=== PATIENT | female | born 1980 | race Caucasian/White ===

== ENCOUNTER 2017-09-06 09:18 | Emergency (ER) | payer MEDICAID ==
[~2017-09-06] VITALS: Ht 157.5 cm; Wt 72.0 kg
[~2017-09-06 09:18] MED LIST: NO HOME MEDS
[2017-09-06 09:32] VITALS: BP 125/59
== END 2017-09-06 11:07 | disposition left against medical advice (07) ==
LOC: ER 09:18
DX: K08.89 Other specified disorders of teeth and supporting structures (principal); Z53.21 Procedure and treatment not carried out due to patient leaving prior to being seen by health care provider

== ENCOUNTER 2017-10-05 11:53 | Emergency (ER) | payer MEDICAID ==
[~2017-10-05] VITALS: Ht 171703.7 cm; Wt 68.1 kg
[2017-10-05 12:29] LABS: BASOPHILS % (AUTO) 0.3 % (0-1); EOSINOPHILS # (AUTO) 0.1 X10'3 (0-0.9); HEMATOCRIT 38.4 % (35.0-45.0); HEMOGLOBIN 12.7 g/dl (12.0-16.0); LYMPHOCYTES % (AUTO) 29.8 % (21-51); MEAN CORPUSCULAR HEMOGLOBIN 29.2 PG (27.0-31.0); MEAN CORPUSCULAR HGB CONC 33.1 % (33.0-36.5); MEAN CORPUSCULAR VOLUME 88.2 FL (78-98); MEAN PLATELET VOLUME 8.2 FL (7.4-10.4); MONOCYTES # (AUTO) 0.5 X10'3 (0-0.9); MONOCYTES % (AUTO) 7.2 % (2-12); NEUTROPHILS # (AUTO) 4.2 X10'3 (1.8-7.7); NEUTROPHILS % (AUTO) 60.7 % (42-75); PLATELET COUNT 309 X10'3 (140-440); RED BLOOD COUNT 4.35 X10'6 (4.20-5.60); WHITE BLOOD COUNT 6.9 X10'3 (4.5-11.0)
[2017-10-05 12:57] LABS: ALANINE AMINOTRANSFERASE 34 U/L (12-78); ALBUMIN 4.3 G/DL (3.4-5.0); ALKALINE PHOSPHATASE 66 IU/L (46-116); ANION GAP 10 (8-16); ASPARTATE AMINO TRANSFERASE 20 U/L (10-37); BILIRUBIN,TOTAL 0.3 MG/DL (0.1-1.0); BLOOD UREA NITROGEN 8 MG/DL (7-18); BUN/CREATININE RATIO 9.8 (6.6-38.0); CALCIUM 9.3 MG/DL (8.5-10.1); CHLORIDE 101 MMOL/L (99-107); CREATININE 0.82 MG/DL (0.40-0.90); ETHANOL < 0.010 GM/DL (0.0-0.010); GLUCOSE 124 MG/DL (70-104); POTASSIUM 3.9 MMOL/L (3.5-5.1); SODIUM 136 MMOL/L (135-145); TOTAL CARBON DIOXIDE 24.6 MMOL/L (24-32); TOTAL PROTEIN 8.5 G/DL (6.4-8.2); eGFR 78 ML/MIN
[2017-10-05 13:14] LABS: CLARITY,URINE CLEAR (Clear); COLOR,URINE YELLOW (Yellow); GLUCOSE, URINE NEGATIVE (Neg); KETONES,URINE NEGATIVE (Neg); LEUKOCYTE ESTERASE ,URINE NEGATIVE (Neg); NITRITES, URINE NEGATIVE (Neg); OCCULT BLOOD,URINE SMALL (Neg); PH,URINE 5.5 (4.8-8.0); PROTEIN,URINE NEGATIVE (Neg); UROBILINOGEN,URINE 0.2 E.U/dL (0.2-1.0)
[2017-10-05 13:15] LABS: UA COLLECTION TYPE CLN CATCH MIDSTREAM; URINE HCG NEGATIVE (NEG)
[2017-10-05 13:20] LABS: BACTERIA,URINE NONE SEEN /HPF (Neg); MUCUS STRANDS NONE SEEN /LPF (Neg); RBC,URINE NONE SEEN /HPF (0-2); SQUAMOUS EPITHELIAL CELL,UR MANY /LPF (FEW); WBC,URINE NONE SEEN /HPF (0-4)
[2017-10-05 13:26] LABS: URINE AMPHETAMINE SCREEN NEGATIVE (Neg); URINE BARBITUATE SCREEN NEGATIVE (Neg); URINE BENZODIAZEPINES SCREEN NEGATIVE (Neg); URINE CANNABINOID SCREEN POSITIVE (Neg); URINE COCAINE SCREEN NEGATIVE (Neg); URINE METHADONE SCREEN NEGATIVE (Neg); URINE OPIATE SCREEN POSITIVE (Neg); URINE PHENCYCLIDINE SCREEN NEGATIVE (Neg)
[2017-10-05] MEDS ORDERED: LORazepam 1 MG tablet PO ONE ×2 (14:05→16:00)
[2017-10-05 14:25] LABS: ACETAMINOPHEN 2.4 UG/ML (10-30)
[2017-10-05] MEDS ORDERED: diphenhydrAMINE 25mg capsule PO ONE (16:00)
[2017-10-05] MEDS ORDERED: HYDR-3686 PO (16:17)
[2017-10-05] MEDS ORDERED: HALO10TA13 PO (16:17)
[2017-10-05] MEDS: hydrOXYzine 25 MG tablet PO PRN (20:37)
[2017-10-05] MEDS: haloperidol 5mg tablet PO SCH (20:37)
[2017-10-06] MEDS: hydrOXYzine 25 MG tablet PO PRN ×2 (06:57→13:29)
[2017-10-06] MEDS: haloperidol 5mg tablet PO SCH ×3 (07:40→20:49)
[2017-10-06] MEDS: ziprasidone 20mg capsule PO PRN (09:07)
[2017-10-06] MEDS: gabapentin 100mg capsule PO SCH ×2 (13:30→20:49)
[2017-10-06] MEDS ORDERED: naproxen 500mg tablet PO ONE (16:15)
[2017-10-06] MEDS ORDERED: loperamide 2mg capsule PO ONE (16:30)
[2017-10-06] MEDS ORDERED: loperamide 2mg capsule PO PRN (16:30)
[2017-10-06] MEDS: quetiapine 100mg tablet PO SCH (20:49)
[2017-10-07] MEDS: gabapentin 100mg capsule PO SCH ×3 (06:53→23:23)
[2017-10-07] MEDS: hydrOXYzine 25 MG tablet PO PRN (06:54)
[2017-10-07] MEDS: haloperidol 5mg tablet PO SCH ×3 (06:54→23:23)
[2017-10-07] MEDS: ziprasidone 20mg capsule PO PRN ×2 (07:51→23:23)
[2017-10-07] MEDS ORDERED: LORazepam 2 mg/ml vial IM ONE (12:25)
[2017-10-07] MEDS: quetiapine 100mg tablet PO SCH (23:23)
[2017-10-08] MEDS: ziprasidone 20mg capsule PO PRN (06:02)
[2017-10-08] MEDS: hydrOXYzine 25 MG tablet PO PRN ×2 (06:04→16:26)
[2017-10-08] MEDS: gabapentin 100mg capsule PO SCH ×3 (07:46→21:56)
[2017-10-08] MEDS: haloperidol 5mg tablet PO SCH ×3 (07:46→21:55)
[2017-10-08] MEDS: LORazepam 1 MG tablet PO PRN (10:00)
[2017-10-08] MEDS: quetiapine 100mg tablet PO SCH (21:56)
[2017-10-09] MEDS: gabapentin 100mg capsule PO SCH ×3 (08:00→21:22)
[2017-10-09] MEDS: haloperidol 5mg tablet PO SCH ×3 (08:00→21:22)
[2017-10-09] MEDS: ziprasidone 20mg capsule PO PRN (09:49)
[2017-10-09] MEDS: LORazepam 1 MG tablet PO PRN (09:49)
[2017-10-09] MEDS: quetiapine 100mg tablet PO SCH (21:22)
[2017-10-10 05:23] VITALS: BP 123/84
[2017-10-10] MEDS: LORazepam 1 MG tablet PO PRN (05:57)
[2017-10-10] MEDS: haloperidol 5mg tablet PO SCH (07:27)
[2017-10-10] MEDS: gabapentin 100mg capsule PO SCH (07:27)
[2017-10-10] MEDS: hydrOXYzine 25 MG tablet PO PRN (07:32)
== END 2017-10-10 11:36 ==
LOC: ER 11:54
DX: R45.851 Suicidal ideations (principal); R44.0 Auditory hallucinations; F31.9 Bipolar disorder, unspecified; G89.29 Other chronic pain; Z90.49 Acquired absence of other specified parts of digestive tract; F12.10 Cannabis abuse, uncomplicated; F15.10 Other stimulant abuse, uncomplicated; Z91.018 Allergy to other foods; Z59.0 Homelessness
CPT/HCPCS: 36415; 80053; 80305; 80320; 80329; 81001; 81025; 84443; 85025; 96372; 99285; J2060; Q0163; Q0177

== ENCOUNTER 2018-09-22 19:35 | Emergency (ER) | payer MEDICAID ==
[~2018-09-22] VITALS: Ht 157.5 cm; Wt 78.0 kg
[~2018-09-22 19:35] MED LIST changes: +HALO10TA13 PO; +HYDR-3686 PO; -NO HOME MEDS
[2018-09-22 20:04] LABS: BASOPHILS # (AUTO) 0.1 X10'3 (0-0.2); BASOPHILS % (AUTO) 0.8 % (0-1); EOSINOPHILS # (AUTO) 0.2 X10'3 (0-0.9); EOSINOPHILS % (AUTO) 3.3 % (0-6); HEMATOCRIT 35.7 % (35.0-45.0); HEMOGLOBIN 11.9 g/dl (12.0-16.0); LYMPHOCYTES # (AUTO) 2.2 X10'3 (1.1-4.8); LYMPHOCYTES % (AUTO) 29.4 % (21-51); MEAN CORPUSCULAR HEMOGLOBIN 28.6 PG (27.0-31.0); MEAN CORPUSCULAR HGB CONC 33.4 g/dL (33.0-36.5); MEAN CORPUSCULAR VOLUME 85.8 FL (78-98); MEAN PLATELET VOLUME 8.1 FL (7.4-10.4); MONOCYTES # (AUTO) 0.7 X10'3 (0-0.9); MONOCYTES % (AUTO) 9.2 % (2-12); NEUTROPHILS # (AUTO) 4.2 X10'3 (1.8-7.7); NEUTROPHILS % (AUTO) 57.3 % (42-75); PLATELET COUNT 345 X10'3 (140-440); RED BLOOD COUNT 4.17 X10'6 (4.20-5.60); RED CELL DISTRIBUTION WIDTH 14.3 % (11.5-14.5); WHITE BLOOD COUNT 7.4 X10'3 (4.5-11.0)
[2018-09-22 20:19] VITALS: BP 107/78
[2018-09-22 20:20] LABS: ALANINE AMINOTRANSFERASE 26 U/L (12-78); ALBUMIN 3.6 G/DL (3.4-5.0); ALBUMIN/GLOBULIN RATIO 0.9 (1.1-1.5); ALKALINE PHOSPHATASE 71 IU/L (46-116); ANION GAP 8 (8-16); ASPARTATE AMINO TRANSFERASE 20 U/L (10-37); BILIRUBIN,TOTAL 0.2 MG/DL (0.1-1.0); BLOOD UREA NITROGEN 13 MG/DL (7-18); CALCIUM 8.7 MG/DL (8.5-10.1); CHLORIDE 104 MMOL/L (99-107); CREATININE 0.81 MG/DL (0.40-0.90); GLUCOSE 86 MG/DL (70-104); SODIUM 137 MMOL/L (135-145); TOTAL CARBON DIOXIDE 25.2 MMOL/L (24-32); TOTAL PROTEIN 7.6 G/DL (6.4-8.2); eGFR 78 ML/MIN
[2018-09-22 20:38] LABS: LIPASE 118 U/L (73-393)
[2018-09-22 20:54] LABS: URINE HCG NEGATIVE (NEG)
[2018-09-22 20:56] LABS: CLARITY,URINE CLOUDY (Clear); COLOR,URINE YELLOW (Yellow); GLUCOSE, URINE NEGATIVE (Neg); KETONES,URINE NEGATIVE (Neg); LEUKOCYTE ESTERASE ,URINE NEGATIVE (Neg); NITRITES, URINE POSITIVE (Neg); OCCULT BLOOD,URINE TRACE-INTACT (Neg); PH,URINE 6.5 (4.8-8.0); PROTEIN,URINE NEGATIVE (Neg); UROBILINOGEN,URINE 0.2 E.U/dL (0.2-1.0)
[2018-09-22 21:02] LABS: UA COLLECTION TYPE CLN CATCH MIDSTREAM
[2018-09-22 21:03] LABS: BACTERIA,URINE 4+ /HPF (Neg); RBC,URINE 0-2 /HPF (0-2); SQUAMOUS EPITHELIAL CELL,UR FEW /LPF (FEW); WBC,URINE 0-4 /HPF (0-4)
[2018-09-22] MEDS ORDERED: ondansetron/PF 4mg/2ml inj IV ONE (21:30)
[2018-09-22] MEDS ORDERED: normal saline 1000ML IV soln IVB ONE (21:30)
[2018-09-22] MEDS ORDERED: morphine 4 MG/ML inj SYRINge IV PRN (21:30)
[2018-09-22] MEDS: HYDROmorphone 1 mg/ml syringe IV PRN ×2 (22:52→23:44)
[2018-09-22] MEDS ORDERED: CefTRIAXone 2gm/D5W 50ml 50 ML IV ONE (23:20)
[2018-09-22] MEDS ORDERED: SULF1TAB49 PO (23:57)
[2018-09-23] MEDS: HYDROmorphone 1 mg/ml syringe IV PRN (00:11)
== END 2018-09-23 00:26 | disposition home or self-care (01) ==
LOC: ER 19:35
DX: N39.0 Urinary tract infection, site not specified (principal); R91.1 Solitary pulmonary nodule; R14.0 Abdominal distension (gaseous); R10.84 Generalized abdominal pain; F12.90 Cannabis use, unspecified, uncomplicated; F15.90 Other stimulant use, unspecified, uncomplicated; G89.29 Other chronic pain; Z59.0 Homelessness; Z90.49 Acquired absence of other specified parts of digestive tract; Z98.890 Other specified postprocedural states; Z98.51 Tubal ligation status; Z91.018 Allergy to other foods; Z79.899 Other long term (current) drug therapy
CPT/HCPCS: 36415; 74176; 80053; 81001; 81025; 83690; 85025; 85610; 87077; 87088; 87186; 96365; 96375; 96376; 99284; J0696; J1170; J2405; J7030

== ENCOUNTER 2019-04-03 17:51 | Emergency (ER) | payer MEDICAID ==
[~2019-04-03] VITALS: Ht 157.5 cm; Wt 75.0 kg
[2019-04-03 18:01] VITALS: BP_SYST 127
[2019-04-03] MEDS ORDERED: AMOX-419 PO (18:30)
== END 2019-04-03 18:51 | disposition home or self-care (01) ==
LOC: ER 17:52
DX: H66.91 Otitis media, unspecified, right ear (principal); G89.29 Other chronic pain; F31.9 Bipolar disorder, unspecified; F12.90 Cannabis use, unspecified, uncomplicated; F15.90 Other stimulant use, unspecified, uncomplicated; Z90.49 Acquired absence of other specified parts of digestive tract; Z98.51 Tubal ligation status; Z98.890 Other specified postprocedural states; Z59.0 Homelessness; Z91.018 Allergy to other foods; Z79.2 Long term (current) use of antibiotics
CPT/HCPCS: 99283